=== PATIENT | female | born 1945 | race Caucasian/White ===

== ENCOUNTER → 2017-07-19 | Outpatient (CLI) | payer MEDICARE, BC ==
--- NOTE | 2017-07-19 11:03 | RAD ---
DATE: 07/19/2017 EXAM: MAMMO LORI DIAG BILAT HISTORY: Left breast pain COMPARISON: None available This study was interpreted with the benefit of Computerized Aided Detection (CAD). The breast parenchyma shows scattered fibroglandular densities. Breast parenchyma level B. FINDINGS: 2-D and 3-D tomosynthesis imaging was performed in CC and MLO projections. No breast mass or suspicious densities are seen. There is predominantly fatty tissue in the superior aspect of the left breast in the area of the patient's reported pain. Benign type calcifications are present. No suspicious microcalcifications are evident. Benign-appearing lymph nodes are present in both axillary regions. IMPRESSION: There is no mammographic evidence of malignancy in the breasts. Clinical surveillance is suggested. BI-RADS CATEGORY: 2 BENIGN FINDING(S) RECOMMENDED FOLLOW-UP: 12M 12 MONTH FOLLOW-UP PQRS compliance statement: Patient information was entered into a reminder system with a target due date for the next mammogram. Mammography is a sensitive method for finding small breast cancers, but it does not detect them all and is not a substitute for careful clinical examination. A negative mammogram does not negate a clinically suspicious finding and should not result in delay in biopsying a clinically suspicious abnormality. "Our facility is accredited by the [employer] Mammography [employer]."
--- NOTE | 2017-07-19 15:24 | RAD ---
Bone densitometry scan, 07/19/2017: History: Bone Density screening, ovarian failure The lumbar spine and right hip were examined utilizing a DEXA technique. The bone mineral density in the lumbar spine as measured from the L1-L4 levels is 0.78 g/sq cm. It yields a T score of -3.3 compatible with osteoporosis. The total T score at the right hip is -2.5, also compatible with osteoporosis. IMPRESSION: Osteoporosis
== END | disposition home or self-care (01) ==
LOC: DXRAD 10:20
PROVIDERS: ATTEND Nurse Practitioner Family
DX: N64.89 Other specified disorders of breast (principal); I10 Essential (primary) hypertension; M81.0 Age-related osteoporosis without current pathological fracture; E28.39 Other primary ovarian failure; Z78.0 Asymptomatic menopausal state
CPT/HCPCS: 77066; 77080; G0279; 77062

== ENCOUNTER → 2017-12-19 | Outpatient (CLI) | payer MEDICARE, BC ==
--- NOTE | 2017-12-19 18:02 | RAD ---
Left Lower Extremity Venous Doppler Ultrasound History: Left leg swelling Comparison: None Procedure: Color flow, duplex, spectral analysis and 2D images are obtained with and without compression in the area of the common femoral vein, superficial femoral vein - femoral vein junction, main femoral vein (superficial femoral vein) and popliteal vein. Veins of the proximal calf are also imaged. Findings: There is normal duplex flow, color flow and compressibility of all visualized vein segments. No evidence of deep venous thrombus is present. Impression: No evidence of DVT. Electronically signed by: Alden Woodall III, MD (12/19/2017 5:58 PM) [facility]
== END | disposition home or self-care (01) ==
LOC: US 16:01
PROVIDERS: ATTEND Family Medicine
DX: M79.89 Other specified soft tissue disorders (principal); I10 Essential (primary) hypertension
CPT/HCPCS: 93971

== ENCOUNTER → 2020-07-23 | Outpatient (CLI) | payer BC, MEDICARE ==
--- NOTE | 2020-07-23 17:10 | RAD ---
DATE: 07/23/2020 7:50 AM EXAM: MAMMO LORI SCREENING BILATERAL HISTORY: Screening COMPARISON: 07/19/2017 Bilateral CC and MLO views of the breasts were performed. Bilateral breast tomosynthesis was performed in CC and MLO projections. This study was interpreted with the benefit of Computerized Aided Detection (CAD). FINDINGS: Breast Density: SCATTERED The breast parenchyma shows scattered fibroglandular densities. Breast parenchyma level B No suspicious masses, microcalcifications or architectural distortion is present to suggest malignancy in either breast. The visualized axillae are unremarkable. IMPRESSION: No mammographic evidence of malignancy. BI-RADS CATEGORY: 1 NEGATIVE RECOMMENDED FOLLOW-UP: 12M 12 MONTH FOLLOW-UP Annual screening mammography is recommended, unless clinically indicated sooner based on symptoms or change in physical exam. PQRS compliance statement: Patient information was entered into a reminder system with a target due date for the next mammogram. Mammography is a sensitive method for finding small breast cancers, but it does not detect them all and is not a substitute for careful clinical examination. A negative mammogram does not negate a clinically suspicious finding and should not result in delay in biopsying a clinically suspicious abnormality. "Our facility is accredited by the [employer]ammography [employer]."
== END ==
LOC: MAMMO 07:34
PROVIDERS: ATTEND Family Medicine
DX: Z12.31 Encounter for screening mammogram for malignant neoplasm of breast (principal)
CPT/HCPCS: 77063; 77067

== ENCOUNTER → 2020-12-21 | Outpatient (CLI) | payer MEDICARE ==
--- NOTE | 2020-12-21 14:32 | RAD ---
XR FOOT_LEFT 3 VIEWS 12/21/2020 2:23 PM Reason: INJURY TO LEFT FOOT, FELL IN POT HOLE Comparison: None Technique: 3 views of the left foot Findings: There is no acute fracture or dislocation. There is mild degenerative change of the first tarsal meta tarsal joint. Joint space narrowing of the interphalangeal joint of the first digit also noted. Surro unding soft tissues are normal. Impression: No acute osseous abnormality. Electronically signed by: Marshall Norton (12/21/2020 2:30 PM) [id number]
== END ==
LOC: RAD 11:06
PROVIDERS: ATTEND Family Medicine
DX: S99.822A Other specified injuries of left foot, initial encounter (principal); M19.072 Primary osteoarthritis, left ankle and foot; M25.872 Other specified joint disorders, left ankle and foot; W19.XXXA Unspecified fall, initial encounter; Y93.89 Activity, other specified; Y92.89 Other specified places as the place of occurrence of the external cause; Y99.8 Other external cause status
CPT/HCPCS: 73630